=== PATIENT | female | born 1985 | race Caucasian/White ===

== ENCOUNTER 2019-09-04 11:41 | Emergency (ER) | payer OTHER ==
[2019-09-04] MEDS ORDERED: Lidocaine 1% 30 ML SDV INJECT ONE (12:10)
--- NOTE | 2019-09-04 12:20 | CR ---
[id number] RAD/RAD Fingers Right EXAM: RAD Fingers Right CLINICAL DATA: TRAUMA COMPARISON: NO PREVIOUS SIMILAR EXAM IS AVAILABLE. FINDINGS: A nondisplaced fracture of the distal right fifth phalanx is suspected. IMPRESSION: QUESTION OF SUBTLE FRACTURE OF DISTAL RIGHT FIFTH PHALANX CORRELATION WITH PHYSICAL EXAM WOULD BE HELPFUL Jacob Goodman MD 09/04/19 2831 Thank you for allowing us to participate in the care of your patient.
--- NOTE | 2019-09-04 13:37 | EDM.PDOC ---
ED HPI GENERAL MEDICAL PROBLEM - General Chief Complaint: Upper Extremity Injury/Pain Stated Complaint: CRUSHED RIGHT FINGERS Time Seen by Provider: 09/04/19 11:41 Source of Information: Reports: Patient History Limitations: Reports: No Limitations - History of Present Illness INITIAL COMMENTS - FREE TEXT/NARRATIVE: Pt. states that she caught her finger in a metal press at work. Pt. states that the injury was isolated to the R middle finger. Denies injury elsewhere. Tetanus is up to date. Pt. is currently 28 weeks gestation. Pt. was initially seen in clinic but was sent to ER for further evaluation and care. Denies any previous injury to this digit in the past. Onset: Today Onset Date: 09/04/19 Location: Reports: Upper Extremity, Right Quality: Reports: Pressure, Throbbing Severity: Severe - Related Data Allergies Allergy/AdvReac Type Severity Reaction Status Date / Time Penicillins Allergy Other Verified 09/04/19 11:49 Review of Systems - Review of Systems Review Of Systems: Comprehensive ROS is negative, except as noted in HPI. ED EXAM, GENERAL - Physical Exam Exam: See Below Extremities: Limited Range of Motion, Other (ecchymosis/edema to distal portion of R middle finger. Nail is partially avulsed. Subungual hematoma noted. When nail was removed, there was evidence of a laceration to the nail matrix.) Neurological: Alert ED TRAUMA EXTREMITY PROCEDURES - Splinting Right 3rd Digit Pre-Procedure NV Status: Normal Post-Procedure NV Status: Normal Splint Material: Metal Splint Design: Other (baseball) Applied & Form Fitted By: Nurse Provider Post-Splint Application NV Check: NV Status Normal Complications: No - Additional/Other Procedure(s) Other (Free Text) Procedure(s): Finger was cleansed with saline and chlorhexidine. Hand was prepped and draped in usual sterile fashion. digital block placed in the base of the 3rd digit of R hand. When adequate anesthesia was achieved, a midline bisecting incision was done vertically through the middle of the nail. Nail was liberated from the matrix using hemostats. Again, laceration was noted to the matrix. It was actively bleeding but controlled with direct pressure. Nail matrix was covered liberally with bacitracin, then covered in zerofoam, 2x2s, and coban. Finger was splinted with baseball splint. Course - Orders/Labs/Meds Meds: Medications Discontinued Medications Generic Name Dose Route Start Last Admin Trade Name Jaquan PRN Reason Stop Dose Admin Lidocaine HCl 30 ml 09/04/19 12:10 09/04/19 12:22 Xylocaine-Mpf 1% INJECT 09/04/19 12:11 30 ml ONETIME ONE Administration Departure - Departure Time of Disposition: 13:15 Disposition: Home, Self-Care 01 Clinical Impression: Nail avulsion, finger - Discharge Information Instructions: Acetaminophen; Hydrocodone tablets or capsules, Finger Fracture, Adult, Cephalexin tablets or capsules, Nail Bed Injury, [id number] Referrals: Tonya Awad DO [Primary Care Provider] - Forms: ED Department Discharge Additional Instructions: Keflex 500mg 1 three times daily for 7 days Gordon 5/325mg 1 every 4-6 hours as needed for pain Elevate hand/finger as much as possible. Keep above your heart. Recheck in clinic on Off work for the rest of the day - Problem List Review Problem List Initiated/Reviewed/Updated: Yes - Assessment/Plan Plan: Discussed findings with [facility] SITE LEASING AGENT. Advised that the patient can follow-up with PCP and does not need to follow-up with hand surgery. Recheck in clinic later this week. Change dressing at that time. Pt. may be able to transition to a large fingertip bandage. She was not convinced there was a fracture, but it was splinted for the time being. Will have her keep using the splint for now and protection. Repeat radiographs in a week to see if there is any obvious fracture. I did start patient on a course of keflex 500mg 3 times daily for 7 days Gordon 5/325mg 1 every 4-6 hours as needed for pain. She is 28 weeks and was advised to only use them if needed and not to use them in the days near her due date, in having contractions, discharge, etc.
== END 2019-09-04 13:05 | disposition home or self-care (01) ==
LOC: VM.ED 11:41
DX: O9A.213 Injury, poisoning and certain other consequences of external causes complicating pregnancy, third trimester (principal); S61.312A Laceration without foreign body of right middle finger with damage to nail, initial encounter; Z88.0 Allergy status to penicillin; W23.0XXA Caught, crushed, jammed, or pinched between moving objects, initial encounter; Y92.89 Other specified places as the place of occurrence of the external cause; Y99.0 Civilian activity done for income or pay; Z3A.28 28 weeks gestation of pregnancy
CPT/HCPCS: 64450; 73140-F7; 99283-25; J2001

== ENCOUNTER 2020-03-18 08:07 | Emergency (ER) | payer BC, OTHER ==
[2020-03-18] MEDS ORDERED: Sodium Chloride 0.9% 10 ML Syringe FLUSH PRN (08:37)
[2020-03-18] MEDS ORDERED: Sodium Chloride 0.9% 1,000 ML IV SCH (08:45)
--- NOTE | 2020-03-18 08:53 | EDM.PDOC ---
ED HPI GENERAL MEDICAL PROBLEM - General Stated Complaint: DIZZY RT EAR PLUGGED Time Seen by Provider: 03/18/20 08:07 Source of Information: Reports: Patient, RN History Limitations: Reports: No Limitations - History of Present Illness INITIAL COMMENTS - FREE TEXT/NARRATIVE: Pt. presents to ER with complaints of fatigue, lightheadedness, R ear pain, and recent cough. She states that she was at work this AM when the symptoms started. She states that she has had the cough for several days. Denies any fever or chills. No chest pain or shortness of breath. Denies any hemoptysis. No nausea, vomiting, diarrhea, melena, hematochezia or hematemesis. Denies any rashes. No myalgias or arthralgias. She states that the has not been around any ill contacts. Pt. states that she has not been getting a lot of sleep recently, as she has a infant at home and her travels for work. She states that she did eat this AM, and has had normal intake of fluids. She states that she uses a [employer] at work and has not been exposed to any fumes or smoke recently. 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 Denies: Fever, Chills, Weakness, Night Sweats, Diaphoresis, Decreased Appetite, Weight Loss, Weight Gain HEENT: Reports: Ear Pain Respiratory: Reports: No Symptoms Cardiovascular: Reports: Lightheadedness Endocrine: Reports: No Symptoms GI/Abdominal: Reports: No Symptoms : Reports: No Symptoms Musculoskeletal: Reports: No Symptoms Skin: Reports: No Symptoms Neurological: Reports: No Symptoms Psychiatric: Reports: No Symptoms Hematologic/Lymphatic: Reports: No Symptoms Immunologic: Reports: No Symptoms ED EXAM, GENERAL - Physical Exam Exam: See Below Exam Limited By: No Limitations General Appearance: Alert, WD/WN, No Apparent Distress Eye Exam: Bilateral Eye: EOMI, PERRL Ears: Normal TMs Ear Exam: Bilateral Ear: Other (scant fluid behind both TM) Nose: Normal Inspection, No Blood Throat/Mouth: Normal Inspection, Normal Lips, Normal Teeth, Normal Gums, Normal Oropharynx, Normal Voice, No Airway Compromise Head: Atraumatic, Normocephalic Neck: Normal Inspection, Supple, Non-Tender, Full Range of Motion Respiratory/Chest: No Respiratory Distress, Lungs Clear, Normal Breath Sounds, No Accessory Muscle Use, Chest Non-Tender Cardiovascular: Normal Peripheral Pulses, Regular Rate, Rhythm, No Edema, No JVD Peripheral Pulses: 4+: Radial (R) GI/Abdominal: Soft, Non-Tender, No Distention, No Mass (Female) Exam: Deferred Rectal (Female) Exam: Deferred Back Exam: Normal Inspection, Full Range of Motion Extremities: Normal Inspection, Normal Range of Motion, Non-Tender Neurological: Alert, Oriented, CN II-XII Intact, Normal Cognition, Normal Gait, Normal Reflexes, No Motor/Sensory Deficits Psychiatric: Normal Affect, Normal Mood Skin Exam: Warm, Dry, Intact, Normal Color, No Rash #1 Interpretation Rhythm: NSR [place]: Normal P-Wave: Present QRS: Normal ST-T: Normal QT: Normal Course - Vital Signs Last Recorded V/S: Last Vital Signs Temp 36.6 C 03/18/20 08:10 Pulse 70 03/18/20 08:10 Resp 18 03/18/20 08:10 BP 109/76 03/18/20 09:35 Pulse Ox 98 03/18/20 08:10 - Orders/Labs/Meds Orders: Active Orders 24 hr Category Date Time Status Peripheral IV Insertion Adult [OM.PC] Routine Oth 03/18/20 08:38 Ordered Labs: Laboratory Tests 03/18/20 03/18/20 03/18/20 Range/Units 08:53 08:53 08:53 WBC 13.2 H (4.0-10.0) x10^3/uL RBC 4.74 (4.00-5.50) x10^6/uL Hgb 14.0 (12.0-16.0) g/dL Hct 40.6 (33.0-47.0) % MCV 85.7 (78.0-93.0) fL MCH 29.5 (26.0-32.0) pg MCHC 34.5 (32.0-36.0) g/dL RDW Coeff of Aram 14.8 (10.0-15.0) % Plt Count 260 (130-400) x10^3/uL Neut % (Auto) 78.0 (50.0-80.0) % Lymph % (Auto) 17.0 L (25.0-50.0) % [place] % (Auto) 4.7 (2.0-11.0) % Eos % (Auto) 0.1 (0.0-4.0) % Baso % (Auto) 0.2 (0.2-1.2) % PT 10.3 (9.9-12.5) SEC INR 0.9 L (2.0-3.5) APTT (25.6-32.8) SEC Sodium 140 (136-145) mmol/L Potassium 3.9 (3.5-5.1) mmol/L Chloride 103 (98-107) mmol/L Carbon Dioxide 26 (21-32) mmol/L Anion Gap 14.9 (5-15) mmol/L BUN 13 (7-18) mg/dL Creatinine 0.9 (0.55-1.02) mg/dL Est Cr Clr Drug Dosing TNP Estimated GFR (MDRD) > 60 Glucose 95 (74-106) mg/dL Calcium 9.3 (8.5-10.1) mg/dL Corrected Calcium 9.38 (8.5-10.1) mg/dL Magnesium 1.9 (1.8-2.4) mg/dL Total Bilirubin 0.3 (0.2-1.0) mg/dL AST 15 (15-37) U/L ALT 24 (14-59) U/L Alkaline Phosphatase 83 (46-116) U/L Troponin I < 0.017 (<=0.056) ng/mL C-Reactive Protein 0.6 (<=0.9) mg/dL Total Protein 7.0 (6.4-8.2) g/dL Albumin 3.9 (3.4-5.0) g/dL Globulin 3.1 Albumin/Globulin Ratio 1.26 Urine Color (YELLOW) Urine Appearance (CLEAR) Urine pH (5.0-8.0) Ur Specific [place] Urine Protein (NEGATIVE) mg/dL Urine Glucose (UA) (NEGATIVE) mg/dL Urine Ketones (NEGATIVE) mg/dL Urine Occult Blood (NEGATIVE) Urine Nitrite (NEGATIVE) Urine Bilirubin (NEGATIVE) Urine Urobilinogen (0.2) EU/dL Ur Leukocyte Esterase (NEGATIVE) Urine HCG, Qual (NEGATIVE) 03/18/20 03/18/20 03/18/20 Range/Units 08:53 09:35 09:35 WBC (4.0-10.0) x10^3/uL RBC (4.00-5.50) x10^6/uL Hgb (12.0-16.0) g/dL Hct (33.0-47.0) % MCV (78.0-93.0) fL MCH (26.0-32.0) pg MCHC (32.0-36.0) g/dL RDW Coeff of Aram (10.0-15.0) % Plt Count (130-400) x10^3/uL Neut % (Auto) (50.0-80.0) % Lymph % (Auto) (25.0-50.0) % [place] % (Auto) (2.0-11.0) % Eos % (Auto) (0.0-4.0) % Baso % (Auto) (0.2-1.2) % PT (9.9-12.5) SEC INR (2.0-3.5) APTT 26.2 (25.6-32.8) SEC Sodium (136-145) mmol/L Potassium (3.5-5.1) mmol/L Chloride (98-107) mmol/L Carbon Dioxide (21-32) mmol/L Anion Gap (5-15) mmol/L BUN (7-18) mg/dL Creatinine (0.55-1.02) mg/dL Est Cr Clr Drug Dosing Estimated GFR (MDRD) Glucose (74-106) mg/dL Calcium (8.5-10.1) mg/dL Corrected Calcium (8.5-10.1) mg/dL Magnesium (1.8-2.4) mg/dL Total Bilirubin (0.2-1.0) mg/dL AST (15-37) U/L ALT (14-59) U/L Alkaline Phosphatase (46-116) U/L Troponin I (<=0.056) ng/mL C-Reactive Protein (<=0.9) mg/dL Total Protein (6.4-8.2) g/dL Albumin (3.4-5.0) g/dL Globulin Albumin/Globulin Ratio Urine Color Yellow (YELLOW) Urine Appearance Clear (CLEAR) Urine pH 7.0 (5.0-8.0) Ur Specific [place] 1.015 Urine Protein Negative (NEGATIVE) mg/dL Urine Glucose (UA) Negative (NEGATIVE) mg/dL Urine Ketones Negative (NEGATIVE) mg/dL Urine Occult Blood Negative (NEGATIVE) Urine Nitrite Negative (NEGATIVE) Urine Bilirubin Negative (NEGATIVE) Urine Urobilinogen 0.2 (0.2) EU/dL Ur Leukocyte Esterase Negative (NEGATIVE) Urine HCG, Qual Negative (NEGATIVE) Meds: Medications Discontinued Medications Generic Name Dose Route Start Last Admin Trade Name Freq PRN Reason Stop Dose Admin Sodium Chloride 1,000 mls @ 1,000 mls/hr 03/18/20 08:45 03/18/20 08:55 Normal Saline IV 1,000 mls/hr ASDIRECTED AGUSTINA Administration Sodium Chloride 10 ml 03/18/20 08:37 Saline Flush FLUSH ASDIRECTED PRN Keep Vein Open - Radiology Interpretation Free Text/Narrative:: Chest x-ray is negative Departure - Departure Time of Disposition: 09:56 Disposition: Home, Self-Care 01 Clinical Impression: Viral illness, Dehydration - Discharge Information Instructions: Viral Illness, Adult Referrals: Tonya Awad, [Primary Care Provider] - Forms: ED Department Discharge Additional Instructions: Home to rest. Cause of symptoms is due to viral illness and dehydration. Off work until you are free of fever, chills, and weakness for 48 hours. Drink plenty of fluids. Recheck in clinic in 10-14 days. - Problem List Review Problem List Initiated/Reviewed/Updated: Yes - My Orders Last 24 Hours: My Active Orders 03/18/20 08:38 Peripheral IV Insertion Adult [OM.PC] Routine - Assessment/Plan Last 24 Hours: My Active Orders 03/18/20 08:38 Peripheral IV Insertion Adult [OM.PC] Routine Plan: Pt. was given a liter of normal saline. She reported feeling somewhat better. Orthostatic vitals were without significant change. She refused testing for covid and influenza. She did have an elevated white count. Likely cause of her symptoms are of viral etiology. Advised to stay out of work until she is symptom free and without fever or chills for at least 48 hours. Drink plenty of fluids. Recheck in clinic in 10-14 days.
[2020-03-18 09:23] LABS: CHLORIDE,CL 103 mmol/L (98-107); SODIUM,NA 140 mmol/L (136-145)
[2020-03-18 09:25] LABS: ANION GAP 14.9 mmol/L (5-15)
--- NOTE | 2020-03-18 09:42 | CR ---
[id number] RAD/RAD Chest PA or AP 1V EXAM: FRONTAL CHEST INDICATION: LIGHTHEADEDNESS, COUGH. COMPARISON: None. DISCUSSION: The heart and lungs are normal in appearance. IMPRESSION: 1. Negative exam. Loyd Campo MD 03/18/20 0941 Thank you for allowing us to participate in the care of your patient.
== END 2020-03-18 10:05 | disposition home or self-care (01) ==
LOC: VM.ED 08:07
DX: E86.0 Dehydration (principal); B34.9 Viral infection, unspecified; Z88.0 Allergy status to penicillin
CPT/HCPCS: 71045; 80053; 81003; 81025; 83735; 84484; 85025; 85610; 85730; 86140; 93005; 93010; 99284; 99284-25; J7030

== ENCOUNTER 2020-06-25 12:13 | Emergency (ER) | payer BC, OTHER ==
--- NOTE | 2020-06-25 12:55 | EDM.PDOC ---
ED HPI GENERAL MEDICAL PROBLEM - General Stated Complaint: HURT FOOT Time Seen by Provider: 06/25/20 12:45 Source of Information: Reports: Patient - History of Present Illness INITIAL COMMENTS - FREE TEXT/NARRATIVE: Estelita is a 34 y/o female who comes to the ER with left foot pain. She denies any specific injury, but reports that the pain has been coming on over a course of several months. 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 She has done this type of work for about 3 years. She does stand on concrete all day long in the boots. Denies any fever or swelling to the foot. She saw her PCP last week, but forgot to ask him about her foot. 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 - Past Surgical History Female Surgical History: Reports: Other (See Below) Other Female Surgeries/Procedures: laproscopy for endometriosis Review of Systems - Review of Systems Review Of Systems: See Below Constitutional: Reports: No Symptoms Eyes: Reports: No Symptoms Ears: Reports: No Symptoms Nose: Reports: No Symptoms Mouth/Throat: Reports: No Symptoms Respiratory: Reports: No Symptoms Cardiovascular: Reports: No Symptoms GI/Abdominal: Reports: No Symptoms Genitourinary: Reports: No Symptoms Musculoskeletal: Reports: Other (left foot pain) Skin: Reports: No Symptoms Neurological: Reports: No Symptoms Psychiatric: Reports: No Symptoms ED EXAM, GENERAL - Physical Exam Exam: See Below Exam Limited By: No Limitations General Appearance: Alert, WD/WN, No Apparent Distress (Adult female) Head: Atraumatic, Normocephalic Respiratory/Chest: No Respiratory Distress Back Exam: Normal Inspection Extremities: Normal Inspection, Normal Range of Motion, Normal Capillary Refill, Other (Note tenderness on lateral aspect of left great toe and left arch region, no deformity or swelling.) Neurological: Alert, Oriented, CN II-XII Intact Psychiatric: Normal Affect Skin Exam: Warm, Dry, Intact, Normal Color Course - Vital Signs Text/Narrative:: 1245 The patient was seen by the LINE CLOSER. Xray ordered. Also ordered BMP and Uric acid. CBC reviewed from [facility] chart on 06-19-2020. 1400 Xray reviewed. No fx noted. Patient anxious to leave and labs had not yet resulted out. She had to get back to work. Suspect her shoes are contributing to her pain. Suggested she see her PCP to discuss further options. Will review labs an notify her of any abnormals. She was given discharge instructions and left the ER in stable condition. Last Recorded V/S: Last Vital Signs Temp 37.0 C 06/25/20 12:15 Pulse 78 06/25/20 12:15 Resp 18 06/25/20 12:15 BP 100/65 06/25/20 12:15 Pulse Ox 100 06/25/20 12:15 - Orders/Labs/Meds Labs: Laboratory Tests 06/25/20 Range/Units 13:15 Sodium 141 (136-145) mmol/L Potassium 4.2 (3.5-5.1) mmol/L Chloride 105 (98-107) mmol/L Carbon Dioxide 28 (21-32) mmol/L Anion Gap 12.2 (5-15) mmol/L BUN 14 (7-18) mg/dL Creatinine 0.9 (0.55-1.02) mg/dL Est Cr Clr Drug Dosing 70.03 mL/min Estimated GFR (MDRD) > 60 Glucose 97 (70-99) mg/dL Uric Acid 4.1 (2.6-6.0) mg/dL Calcium 8.9 (8.5-10.1) mg/dL - Radiology Interpretation Free Text/Narrative:: XR Left Foot=no acute fx noted Departure - Departure Time of Disposition: 14:03 Disposition: Home, Self-Care 01 Condition: Good Clinical Impression: Left foot pain - Discharge Information Instructions: Foot Pain Referrals: Bitz,Ambrosio, CASINO CHANGE ATTENDANT [Primary Care Provider] - Forms: ED Return to Work/School Form Sepsis Event Note (ED) - Focused Exam Vital Signs: Vital Signs Temp Pulse Resp BP Pulse Ox 06/25/20 12:15 37.0 C 78 18 100/65 100 - Assessment/Plan Assessment:: 1)Left Foot Pain Plan: -Use ibuprofen or acetaminophen as needed for pain -Labs remain pending, but your PCP can access them when you follow up at the clinic -Your PCP may be able to refer you to an Orthotic Specialist who may be able to help with making your industrial steel-toed boots more comfortable -Make an appt to see Ambrosio Priest CNP -Continue all meds as ordered -Return to the ER as needed
--- NOTE | 2020-06-25 13:29 | CR ---
[id number] RAD/RAD Foot Left 3V Min EXAM: RAD Foot Left 3V Min INDICATION: LEFT FOOT PAIN, GETTING WORSE OVER LAST FEW MONTHS. COMPARISON: None. DISCUSSION: No fracture, dislocation or other osseous abnormality. IMPRESSION: 1. Negative exam. Loyd Campo MD 06/25/20 2858 Thank you for allowing us to participate in the care of your patient.
[2020-06-25 13:39] LABS: CHLORIDE,CL 105 mmol/L (98-107); SODIUM,NA 141 mmol/L (136-145)
[2020-06-25 13:40] LABS: ANION GAP 12.2 mmol/L (5-15)
== END 2020-06-25 14:15 | disposition home or self-care (01) ==
LOC: VM.ED 12:13
DX: M79.672 Pain in left foot (principal); Z88.0 Allergy status to penicillin
CPT/HCPCS: 36415; 73630-LT; 80048; 84550; 99283